=== PATIENT | male | born 1970 | race Caucasian/White ===

== ENCOUNTER 2017-06-07 17:04 | Emergency (ER) | payer OTHER ==
[2017-06-07] MEDS ORDERED: BUPIVACAINE 0.5% PF 30 ML VIAL ONE (17:36)
[2017-06-07] MEDS ORDERED: TETANUS/DIPHTHERIA/PERTUSSIS 0.5 ML SYRINGE IM ONE ×3 (17:36→18:17)
--- NOTE | 2017-06-07 17:39 | ED Physician Documentation ---
PD HPI UPPER EXT INJURY - Stated complaint Stated Complaint: RT FINGER INJ - Chief complaint Chief Complaint: Ext Problem - History obtained from History obtained from: Patient - History of Present Illness Location: Left, Finger (index) Where injury occurred: Home Timing - onset: How many minutes ago (20) Timing - duration: Minutes (20) Timing - details: Abrupt onset Pain level max: 4 Pain level now: 4 Improved by: Rest Worsened by: Moving, Palpating Associated symptoms: No: Weakness, Numbness, Tingling, Swelling Contributing factors: No: Anticoagulated Similar symptoms before: Has not had sx before - Additonal information Additional information: finger caught in milling machine Review of Systems Neurologic: denies: Focal weakness, Numbness PD PAST MEDICAL HISTORY - Past Medical History Past Medical History: No - Past Surgical History Past Surgical History: No - Present Medications Home Medications: Ambulatory Orders Medication Instructions Recorded Confirmed Cephalexin [Keflex] 500 mg PO Q6H #28 capsule 06/07/17 - Allergies Allergies/Adverse Reactions: Allergies Allergy/AdvReac Type Severity Reaction Status Date / Time No Known Drug Allergies Allergy Verified 02/25/15 19:33 - Social History Does the pt smoke?: No Smoking Status: Never smoker Does the pt drink ETOH?: Yes Does the pt have substance abuse?: No - Immunizations Immunizations are current?: No Immunizations: TDAP >10years/unknown PD ED PE NORMAL - Vitals Vital signs reviewed: Yes - General General: Alert and oriented X 3, No acute distress - Derm Derm: Warm and dry - Extremities Extremities: Other (L index finger - FROM without pain. Superficial avulsion to pad of finger. No exposed bone. NVI 0.5x1cm) - Neuro Neuro: Alert and oriented X 3 Results - Vitals Vitals: Vital Signs - 24 hr 06/07/17 06/07/17 17:13 18:23 Temperature 36.5 C 36.9 C Heart Rate 92 96 Respiratory 16 18 Rate Blood Pressure 131/90 H 122/85 H O2 Saturation 98 95 Oxygen O2 Source Room air PD MEDICAL DECISION MAKING - ED course Complexity details: considered differential, d/w patient ED course: Patient is a 47-year-old right-handed male who presents with a avulsion of the pad of the left index finger. Superficial, not deep. No bony injury. Neurovascularly intact. Tendon intact. Wounds were copiously irrigated. Will place on antibiotics as this is a dirty wound. Gelfoam was used to stop the bleeding and tube gauze was applied around Telfa. Tdap given. Warnings of infection and instructions on wound care given at bedside. Also counseled on how to minimize scarring. Patient counseled regarding signs and symptoms for which I believe and urgent re-evaluation would be necessary. Patient with good understanding of and agreement to plan and is comfortable going home at this time This document was made in part using voice recognition software. While efforts are made to proofread this document, sound alike and grammatical errors may occur. Departure - Departure Disposition: Home, Self Care Clinical Impression: Traumatic amputation of fingertip Qualifiers: Encounter type: initial encounter Qualified Code(s): S68.129A - Partial traumatic metacarpophalangeal amputation of unspecified finger, initial encounter Condition: Good Instructions: ED Laceration Amputation Finger Tip Open Tx Follow-Up: your,doctor in 1 week for wound check [Other] Prescriptions: Cephalexin [Keflex] 500 mg PO Q6H #28 capsule Comments: Take all antibiotics until gone. Return if you worsen, especially redness, swelling or drainage from the wound. Keep the gelfoam in place for the next several days. Discharge Date/Time: 06/07/17 18:31
[2017-06-07] MEDS ORDERED: CEPHALEXIN 250 MG CAPSULE PO STA (17:57)
[2017-06-07] MEDS ORDERED: CEPHALEXIN 250 MG CAPSULE PO ONE (18:19)
[2017-06-07 18:24] VITALS: BP 122/85
== END 2017-06-07 18:31 | disposition home or self-care (01) ==
LOC: ED 17:04
DX: S68.120A Partial traumatic metacarpophalangeal amputation of right index finger, initial encounter (principal); W31.1XXA Contact with metalworking machines, initial encounter; Y92.009 Unspecified place in unspecified non-institutional (private) residence as the place of occurrence of the external cause; Z23 Encounter for immunization
CPT/HCPCS: 90471; 90715; 99283; A9270

== ENCOUNTER 2019-09-28 04:59 | Emergency (ER) | payer OTHER ==
--- NOTE | 2019-09-28 05:05 | ED Physician Documentation ---
History of Present Illness - Stated complaint Stated Complaint: BLOOD IN STOOL - Chief complaint Chief Complaint: Abd Pain - History obtained from History obtained from: Patient (The patient is a very pleasant 49-year-old male who is otherwise healthy and up-to-date on all of his with no history of colon cancer presents with a 2-day history of intermittent epigastric discomfort and also when he has a bowel movement reporting that it hurts and is noticed some blood streaking the stools as well as on the toilet paper he denies any syncopal episodes he reports he has had a previous colonoscopy CT scan the abdomen and MRI of the abdomen all have which have been unremarkable he denies any personal family history of colon cancer or irritable or inflammatory bowel diseases such as Crohn's or ulcerative colitis.He denies chest pain or shortness of breath he denies being anticoagulated.) Review of Systems Constitutional: reports: Reviewed and negative Eyes: reports: Reviewed and negative Ears: reports: Reviewed and negative Nose: reports: Reviewed and negative Throat: reports: Reviewed and negative Cardiac: reports: Reviewed and negative Respiratory: reports: Reviewed and negative GI: reports: Abdominal Pain, Bloody / black stool, Reviewed and negative : reports: Reviewed and negative Skin: reports: Reviewed and negative Musculoskeletal: reports: Reviewed and negative Neurologic: reports: Reviewed and negative Psychiatric: reports: Reviewed and negative Endocrine: reports: Reviewed and negative Immunocompromised: reports: Reviewed and negative PD PAST MEDICAL HISTORY - Past Surgical History Past Surgical History: No - Present Medications Home Medications: Ambulatory Orders Medication Instructions Recorded Confirmed Cephalexin [Keflex] 500 mg PO Q6H #28 capsule 06/07/17 - Allergies Allergies/Adverse Reactions: Allergies Allergy/AdvReac Type Severity Reaction Status Date / Time No Known Drug Allergies Allergy Verified 02/25/15 19:33 - Social History Does the pt smoke?: No Smoking Status: Never smoker Does the pt drink ETOH?: Yes Does the pt have substance abuse?: No - Immunizations Immunizations are current?: No Immunizations: TDAP >10years/unknown PD ED PE NORMAL - Vitals Vital signs reviewed: Yes - General General: Alert and oriented X 3, No acute distress - HEENT HEENT: PERRL - Neck Neck: Supple, no meningeal sign - Cardiac Cardiac: RRR, No murmur - Respiratory Respiratory: Clear bilaterally - Abdomen Abdomen: Normal bowel sounds, Soft, Non tender, Non distended, No organomegaly, Other (The abdomen soft, nontender, nondistended with normal active bowel sounds no guarding no rebounding and no hepatosplenomegaly there is no CVA tenderness.) - Rectal Rectal: Other (Hemoccult is positive, there is no obvious fissures or fistulas there is good rectal tone there is no high riding prostate no nodules felt on the prostate on digital rectal exam there is no stool in the rectal vault.) - Derm Derm: Warm and dry - Extremities Extremities: No deformity - Neuro Neuro: Alert and oriented X 3 - Psych Psych: Normal mood, Normal affect Results - Vitals Vitals: Vital Signs - 24 hr 09/28/19 05:03 Temperature 36.7 C Heart Rate 90 Respiratory 18 Rate Blood Pressure 140/92 H O2 Saturation 98 Oxygen O2 Source Room air - Labs Labs: Microbiology 09/28/19 05:30 Occult Blood - Final Stool Laboratory Tests 09/28/19 09/28/19 05:38 05:38 WBC 7.0 RBC 5.46 Hgb 16.1 Hct 46.9 MCV 85.9 MCH 29.5 MCHC 34.3 RDW 13.3 Plt Count 299 MPV 9.0 Neut # (Auto) 4.0 Lymph # (Auto) 1.6 Green # (Auto) 0.7 Eos # (Auto) 0.5 Baso # (Auto) 0.1 Absolute Nucleated RBC 0.00 Nucleated RBC % 0.0 Sodium 135 Potassium 3.6 Chloride 100 L Carbon Dioxide 24 Anion Gap 11.0 BUN 23 H Creatinine 0.9 Estimated GFR (MDRD) 90 Glucose 127 H Calcium 9.1 Total Bilirubin 1.8 H AST 22 ALT 43 Alkaline Phosphatase 61 Total Protein 7.4 Albumin 4.7 Globulin 2.7 Albumin/Globulin Ratio 1.7 Lipase 33 Departure - Departure Disposition: 01 Home, Self Care Clinical Impression: Blood in stool Condition: Good Instructions: ED Hematochezia Stable Follow-Up: YOUR,DOCTOR [Other] - Tomorrow
[2019-09-28 05:10] VITALS: BP 140/92
[2019-09-28 05:43] LABS: BASOPHILS # (AUTO) 0.1 10^3/uL (0.0-0.1); BASOPHILS % (AUTO) 0.7 %; EOSINOPHILS # (AUTO) 0.5 10^3/uL (0.0-0.7); EOSINOPHILS % (AUTO) 7.7 %; HGB - HEMOGLOBIN 16.1 g/dL (14.0-18.0); LYMPHOCYTES # (AUTO) 1.6 10^3/uL (1.5-3.5); LYMPHOCYTES % (AUTO) 23.5 %; MEAN CORPUSCULAR HEMOGLOBIN 29.5 pg (27.0-31.0); MEAN CORPUSCULAR HGB CONC 34.3 g/dL (32.0-36.0); MEAN CORPUSCULAR VOLUME 85.9 fL (80.0-94.0); MONOCYTES # (AUTO) 0.7 10^3/uL (0.0-1.0); MONOCYTES % (AUTO) 9.9 %; NEUTROPHILS % (AUTO) 57.8 %; PLT - PLATELET COUNT 299 10^3/uL (130-450); RED BLOOD COUNT 5.46 10^6/uL (4.70-6.10); RED CELL DISTRIBUTION WIDTH 13.3 % (12.0-15.0)
[2019-09-28 05:54] LABS: ALBUMIN 4.7 g/dL (3.2-5.5); ALBUMIN/GLOBULIN RATIO 1.7 (1.0-2.2); BILIRUBIN,TOTAL 1.8 mg/dL (0.2-1.0); CALCIUM 9.1 mg/dL (8.5-10.3); CREATININE 0.9 mg/dL (0.6-1.2); TOTAL PROTEIN 7.4 g/dL (6.7-8.2)
== END 2019-09-28 06:15 | disposition home or self-care (01) ==
LOC: ED 04:59
DX: K92.1 Melena (principal)
CPT/HCPCS: 36415; 80053; 82272; 83690; 85025; 99283; 99284

== ENCOUNTER 2022-09-09 09:42 | Emergency (ER) | payer OTHER ==
[2022-09-09 10:12] LABS: BASOPHILS % (AUTO) 0.6 %; EOSINOPHILS # (AUTO) 0.1 10^3/uL (0.0-0.7); EOSINOPHILS % (AUTO) 1.2 %; HCT - HEMATOCRIT 48.5 % (42.0-52.0); HGB - HEMOGLOBIN 16.3 g/dL (14.0-18.0); LYMPHOCYTES # (AUTO) 1.7 10^3/uL (1.5-3.5); LYMPHOCYTES % (AUTO) 25.7 %; MEAN CORPUSCULAR HEMOGLOBIN 28.9 pg (27.0-31.0); MEAN CORPUSCULAR HGB CONC 33.6 g/dL (32.0-36.0); MEAN PLATELET VOLUME 8.8 fL (7.4-11.4); MONOCYTES # (AUTO) 0.7 10^3/uL (0.0-1.0); MONOCYTES % (AUTO) 10.4 %; NEUTROPHILS # (AUTO) 4.1 10^3/uL (1.5-6.6); NEUTROPHILS % (AUTO) 61.9 %; PLT - PLATELET COUNT 332 10^3/uL (130-450); RED BLOOD COUNT 5.64 10^6/uL (4.70-6.10); RED CELL DISTRIBUTION WIDTH 13.1 % (12.0-15.0); WHITE BLOOD COUNT 6.5 x10^3/uL (4.8-10.8)
--- NOTE | 2022-09-09 10:23 | ED Physician Documentation ---
PD HPI CHEST PAIN - Stated complaint Stated Complaint: CHEST PX - Chief complaint Chief Complaint: Cardiac - History obtained from History obtained from: Patient - History of Present Illness Timing - onset: Today Timing - onset during: Light activity Timing - duration: Minutes (it did improve enroute without particular intervention.) Timing - details: Abrupt onset (Onset at work doing just light activity walking and noted onset of some substernal chest pressure and pain. It was shortly after eating breakfast. He then had a banana and noticed to get a lot worse. Somewhat lightheaded with feeling of numbness on his lips. no dyspnea.) Quality: Pressure, Tightness. No: Sharp Location: Substernal, Epigastric Radiation: Jaw Improved by: No: Rest Worsened by: No: Inspiration, Movement, Palpation Associated symptoms: Feeling faint / dizzy. No: Shortness of air, Nausea, Cough Similar symptoms before: No diagnosis (some arm discomfort yesterday and "didn't feel right" but no pain at that time. Does have history of GERD and esophagitis. Has not been taking Pantoprazole for few months as was feeling well.) Recently seen: Not recently seen Review of Systems Constitutional: denies: Fever Nose: denies: Rhinorrhea / runny nose, Congestion Throat: denies: Sore throat Respiratory: denies: Cough GI: denies: Nausea, Vomiting, Diarrhea, Bloody / black stool Musculoskeletal: denies: Back pain Neurologic: denies: Generalized weakness, Near syncope PD PAST MEDICAL HISTORY - Past Medical History Cardiovascular: Hypertension Respiratory: None Neuro: None Endocrine/Autoimmune: None GI: GERD : None - Past Surgical History Past Surgical History: No - Present Medications Home Medications: Ambulatory Orders Medication Instructions Recorded Confirmed Aspirin EC [Ecotrin] 81 mg PO DAILY 09/09/22 09/09/22 Brimonidine 0.2% Ophth Drops 1 drops OP BID 09/09/22 09/09/22 [Alphagan P 0.2% Ophth Drops] Lisinopril [Zestril] 10 mg PO DAILY 09/09/22 09/09/22 Pantoprazole [Protonix] 40 mg PO DAILY 09/09/22 09/09/22 Pantoprazole [Protonix] 40 mg PO DAILY 30 Days #30 tablet 09/09/22 Sucralfate [Carafate] 1 gm PO ACHS #20 tablet 09/09/22 - Allergies Allergies/Adverse Reactions: Allergies Allergy/AdvReac Type Severity Reaction Status Date / Time No Known Drug Allergies Allergy Verified 09/09/22 09:54 - Social History Does the pt smoke?: No Smoking Status: Never smoker Does the pt drink ETOH?: Yes Does the pt have substance abuse?: No - Immunizations Immunizations are current?: No Immunizations: TDAP >10years/unknown PD ED PE NORMAL - Vitals Vital signs reviewed: Yes - General General: Alert and oriented X 3, No acute distress (denies chest pain now. ), Well developed/nourished - Neck Neck: Supple, no meningeal sign, No adenopathy - Cardiac Cardiac: RRR, No murmur - Respiratory Respiratory: No respiratory distress, Clear bilaterally - Abdomen Abdomen: Soft, Non tender - Derm Derm: Normal color, Warm and dry - Extremities Extremities: No edema, No calf tenderness / cord - Neuro Neuro: Alert and oriented X 3, No motor deficit, Normal speech Results - Vitals Vitals: Vital Signs - 24 hr 09/09/22 09/09/22 09/09/22 09:46 10:53 11:01 Temperature 36.5 C Heart Rate 111 H 98 94 Respiratory 16 20 24 Rate Blood Pressure 166/90 H 153/103 H O2 Saturation 97 95 95 Oxygen O2 Source Room air - EKG (time done) 09:52 Rate: Rate (enter#) (101) Rhythm: NSR [place]: Normal Intervals: Normal NM QRS: Normal Ischemia: Normal ST segments. No: ST elevation c/w ischemia, ST depression - Labs Labs: Laboratory Tests 09/09/22 09/09/22 09/09/22 10:07 10:07 10:07 WBC 6.5 RBC 5.64 Hgb 16.3 Hct 48.5 MCV 86.0 MCH 28.9 MCHC 33.6 RDW 13.1 Plt Count 332 MPV 8.8 Neut # (Auto) 4.1 Lymph # (Auto) 1.7 [place] # (Auto) 0.7 Eos # (Auto) 0.1 Baso # (Auto) 0.0 Absolute Nucleated RBC 0.00 Nucleated RBC % 0.0 Sodium 134 L Potassium 3.7 Chloride 99 L Carbon Dioxide 27 Anion Gap 8.0 BUN 22 H Creatinine 1.2 Estimated GFR (MDRD) 64 L Glucose 122 H Calcium 9.5 Total Bilirubin 1.6 H AST 24 ALT 45 Alkaline Phosphatase 74 Troponin I High Sens 3.8 Total Protein 7.7 Albumin 4.8 Globulin 2.9 Albumin/Globulin Ratio 1.7 Lipase 36 - Rads (name of study) chest xray Radiology: Prelim report reviewed, EMP read indepedently (no acute abnormality), See rad report PD Medical Decision Making - ED course Complexity details: reviewed results, re-evaluated patient, considered differential (symptoms onset related to after eating. Not exertional nor pleuritic. Likely GERD/esophagitis. However, it can be innacurate to go with just symptoms with chest pain, so certainly will get ECG/CXR/Troponin to ensure no signs of cardiorespiratory causes. ), d/w patient Reviewed Lab Results: ECG, CXR, Labs were ordered by me in consideration of evaluating for serious causes of chest pian.ECG did not show any ischemic changes. Chest xray was clear of acute pathology. Labs, especially troponin, were in normal range, exlcuding myocardial injury as a cause. ED course: he did not have any further chest pain symptoms while here. I did give initial meds for acid recudtion and coating of the stomach, as I feel this is the cause of his chest pain episode today. Departure - Departure Disposition: 01 Home, Self Care Clinical Impression: Esophagitis Chest pain Qualifiers: Chest pain type: precordial pain Qualified Code(s): R07.2 - Precordial pain Condition: Stable Record reviewed to determine appropriate education?: Yes Instructions: ED Chest Pain NonCardiac Follow-Up: [facility] [Provider Group] Prescriptions: Sucralfate [Carafate] 1 gm PO ACHS #20 tablet Pantoprazole [Protonix] 40 mg PO DAILY 30 Days #30 tablet Comments: Your EKG, chest x-ray, blood tests are normal excluding the more significant causes of the chest pain such as pneumonia, pneumothorax, congestive heart failure, heart attack, pancreatitis, liver inflammation. The description and provocation of the symptoms are suggestive of an irritation of the esophagus likely from reflux. I would have you restart your pantoprazole acid reducing medicine. In the short-term for the next 5 days I would also suggest coating the esophagus and stomach with sacral fate 3-4 times daily. I sent the prescriptions to the [facility] pharmacy. Tylenol every 4-6 hours if needed for pain. Avoid irritants of the stomach such as NSAIDs, lot of caffeine, alcohol, spicy foods. Follow-up with your primary care if not improving well over the next few days for consideration of other treatments. I sent your prescriptions to the [facility] pharmacy. Discharge Date/Time: 09/09/22 12:15
[2022-09-09 10:40] LABS: ALBUMIN 4.8 g/dL (3.2-5.5); ALBUMIN/GLOBULIN RATIO 1.7 (1.0-2.2); BILIRUBIN,TOTAL 1.6 mg/dL (0.2-1.0); CALCIUM 9.5 mg/dL (8.5-10.3); CREATININE 1.2 mg/dL (0.6-1.2); POTASSIUM 3.7 mmol/L (3.5-5.0); TOTAL PROTEIN 7.7 g/dL (6.7-8.2)
[2022-09-09] MEDS ORDERED: MAG HYDROX/AL HYDROX/SIMETH 30 ML UDC PO STA (10:40)
[2022-09-09] MEDS ORDERED: FAMOTIDINE 20 MG TABLET PO STA (10:40)
--- NOTE | 2022-09-09 10:48 | XRAY Report ---
PROCEDURE: Chest 1 View X-Ray INDICATIONS: Chest pain TECHNIQUE: One view of the chest was acquired. COMPARISON: None. FINDINGS: Surgical changes and devices: None. Lungs and pleura: No pleural effusions or pneumothorax. Lungs are clear. Mediastinum: Mediastinal contours appear normal. Heart size is normal. Bones and chest wall: No suspicious bony lesions. Overlying soft tissues appear unremarkable. IMPRESSION: No acute cardiopulmonary pathology. Reviewed by: Petros Aguillon MD on 09/09/2022 10:46 AM [facility] Approved by: Petros Aguillon MD on 09/09/2022 10:46 AM [facility] Station ID: [id number]
[2022-09-09 10:54] VITALS: BP 153/103
[2022-09-09] MEDS ORDERED: SUCRALFATE 1 GM/10 ML UDC PO STA (11:52)
== END 2022-09-09 12:15 | disposition home or self-care (01) ==
LOC: ED 09:42
DX: K20.90 Esophagitis, unspecified without bleeding (principal); R07.2 Precordial pain; I10 Essential (primary) hypertension
CPT/HCPCS: 36415; 71045; 80053; 83690; 84484; 85025; 93005; 99284; A9270

== ENCOUNTER 2023-03-30 18:10 | Emergency (ER) | payer OTHER ==
[2023-03-30 18:21] VITALS: BP 150/73
[2023-03-30] MEDS ORDERED: DEXAMETHASONE 10 MG/ML VIAL PO STA (18:44)
[2023-03-30] MEDS ORDERED: CHERRY SYRUP 10 ML UDC PO ONE (18:44)
--- NOTE | 2023-03-30 18:47 | ED Physician Documentation ---
History of Present Illness - Stated complaint Stated Complaint: THROAT SWELLING/BUG BITE - Chief complaint Chief Complaint: Wound - Additonal information Additional information: 53-year-old male presents emergency department for evaluation of a rash on his abdomen as well as mild cough congestion and a tickle in his throat for the last several days. He reports he was outside thinks he was bitten by "no see em" bugs. He found the area was intensely itchy and he has been scratching it. He took 2 doses of 25 mg Benadryl without relief of symptoms. His in the room reports that he has very sensitive skin and often ends up with skin manifestations for unclear etiology. Patient also states that for the last 2 days he has had a tickle in his throat and a dry cough. He is has some fullness in his ears. No fevers. No runny nose. Fully vaccinated and boosted for COVID. Review of Systems Constitutional: denies: Fever Nose: denies: Rhinorrhea / runny nose, Congestion Throat: reports: Sore throat Cardiac: reports: Reviewed and negative Respiratory: reports: Reviewed and negative GI: reports: Reviewed and negative : reports: Reviewed and negative Skin: reports: Rash Musculoskeletal: reports: Reviewed and negative PD PAST MEDICAL HISTORY - Past Medical History Cardiovascular: Hypertension Respiratory: None Neuro: None Endocrine/Autoimmune: None GI: GERD : None HEENT: Other Psych: None Musculoskeletal: None Derm: None - Past Surgical History Past Surgical History: No - Present Medications Home Medications: Ambulatory Orders Medication Instructions Recorded Confirmed Aspirin EC [Ecotrin] 81 mg PO DAILY 09/09/22 09/09/22 Brimonidine 0.2% Ophth Drops 1 drops OP BID 09/09/22 09/09/22 [Alphagan P 0.2% Ophth Drops] Lisinopril [Zestril] 10 mg PO DAILY 09/09/22 09/09/22 Pantoprazole [Protonix] 40 mg PO DAILY 09/09/22 09/09/22 Pantoprazole [Protonix] 40 mg PO DAILY 30 Days #30 tablet 09/09/22 Sucralfate [Carafate] 1 gm PO ACHS #20 tablet 09/09/22 - Allergies Allergies/Adverse Reactions: Allergies Allergy/AdvReac Type Severity Reaction Status Date / Time No Known Drug Allergies Allergy Verified 03/30/23 18:17 - Social History Does the pt smoke?: No Smoking Status: Never smoker Does the pt drink ETOH?: Yes Does the pt have substance abuse?: No - Immunizations Immunizations are current?: No Immunizations: TDAP >10years/unknown PD ED PE NORMAL - General General: Alert and oriented X 3, No acute distress - HEENT HEENT: Atraumatic, Ears normal, Moist mucous membranes, Pharynx benign - Neck Neck: Supple, no meningeal sign, No adenopathy - Cardiac Cardiac: RRR, No murmur - Back Back: No CVA TTP, No spinal TTP - Derm Derm: Normal color, Warm and dry. No: No rash (3 x 3 cm area of raised erythema, blanchable. Nonvesicular. Scaling in appearance and palpation) - Extremities Extremities: No deformity - Neuro Neuro: Alert and oriented X 3 Eye Opening: Spontaneous Motor: Obeys Commands Verbal: Oriented GCS Score: 15 Results - Vitals Vitals: Vital Signs - 24 hr 03/30/23 18:17 Temperature 36.5 C Heart Rate 88 Respiratory 16 Rate Blood Pressure 150/73 H O2 Saturation 97 Oxygen O2 Source Room air PD Medical Decision Making - ED course Complexity details: considered differential, d/w patient ED course: 53-year-old male presents emergency department for evaluation of a rash on his lower abdomen this been present for 3 days after he thinks he was bitten by bugs. The appearance of the rash is consistent with a dermatitis. I question whether this was a contact dermatitis due to the belt but patient states he has had the belt for ever. However as such at this time I gave the patient 10 mg of Decadron orally and will recommend hydrocortisone point ointment over the next week or so. A respiratory PCR is pending for what I suspect to be a mild viral URI. Patient will follow up the results through the [facility] portal. Clinically unremarkable cardiopulmonary auscultation. Room air saturations 100%. Usual emergent return precautions were discussed. Departure - Departure Disposition: 01 Home, Self Care Clinical Impression: Rash URI (upper respiratory infection) Qualifiers: URI type: unspecified viral URI Qualified Code(s): J06.9 - Acute upper respiratory infection, unspecified Condition: Stable Comments: As discussed at the bedside I suspect that the rash on your lower abdomen is a dermatitis which is a term for generalized skin inflammation. Initially I thought it could have been due to the belt that you wear though at this time it is unclear. I have given you a single dose of Decadron today in the emergency department I would like you to apply hydrocortisone ointment to this rash twice daily for the next week or so. I expect that the this treatment will make the rash dissipate. I recommend you follow with your PCP to obtain referral to a welding systems and equipment repairer for longer-term evaluation of your skin concerns. Your upper respiratory infections may simply be due to an early virus. We have sent a viral swab and the results should be available on the [facility] portal over the next several hours. If you are COVID-19 positive I recommend that you maintain quarantine for a week. Return to the ER if you find that you are having any worsening symptoms, chest pain, shortness of air, or you find that the rash fails to resolve with the treatment as discussed above.
[2023-03-30 19:41] LABS: CORONAVIRUS 229E-RESP PCR NOT DETECTED; CORONAVIRUS HKU1-RESP PCR NOT DETECTED; CORONAVIRUS NL63-RESP PCR NOT DETECTED; CORONAVIRUS OC43-RESP PCR NOT DETECTED; HUMAN METAPNEUMOVIRUS NOT DETECTED; INFLUENZA A- RESP PCR PANEL NOT DETECTED; RHINOVIRUS/ENTEROVIRUS NOT DETECTED; SARS-CoV-2 -RESP PCR PANEL NOT DETECTED
[2023-03-30 19:42] LABS: B. PARAPERTUSSIS- RESP PCR PAN NOT DETECTED; B. PERTUSSIS- RESP PCR PANEL NOT DETECTED; C. PNEUMONIAE- RESP PCR PANEL NOT DETECTED; INFLUENZA B - RESP PCR PANEL NOT DETECTED; M. PNEUMONIAE- RESP PCR PANEL NOT DETECTED; PARAINFLUENZA VIRUS 1 NOT DETECTED; PARAINFLUENZA VIRUS 2 NOT DETECTED; PARAINFLUENZA VIRUS 3 NOT DETECTED; PARAINFLUENZA VIRUS 4 NOT DETECTED; RSV- RESP PCR PANEL NOT DETECTED
== END 2023-03-30 19:13 | disposition home or self-care (01) ==
LOC: ED 18:10
DX: R21 Rash and other nonspecific skin eruption (principal); J06.9 Acute upper respiratory infection, unspecified; I10 Essential (primary) hypertension
CPT/HCPCS: 87633; 99283; A9270

== ENCOUNTER 2024-01-13 07:59 | Outpatient (CLI) | payer OTHER ==
[~2024-01-13 07:59] MED LIST: GADOTERATE MEGLUMINE 10 MMOL/20 ML VIAL ONE
--- NOTE | 2024-01-13 11:14 | MRI Report ---
PROCEDURE: Brain W/WO INDICATIONS: ISCHEMIC OPTIC NEUROPATHY CONTRAST: 18.6ml Clariscan TECHNIQUE: Noncontrast axial T1 spin echo, axial T2 fast spin echo, sagittal and axial FLAIR, coronal T2 fast sp in echo, axial gradient echo, axial diffusion and ADC through the brain. After the administration of contrast, axial and coronal T1 spin echo with fat saturation through the brain. COMPARISON: None. FINDINGS: Image quality: Excellent. CSF spaces: Basal cisterns are patent. No extra-axial fluid collections. Ventricles are normal in size and shape. Brain: No midline shift. No intracranial bleeds or masses. No abnormal intracranial enhancement. There is mild cerebral volume loss for age. There is mild periventricular white matter chronic small vessel ischemic change. The brainstem appears normal. Diffusion-weighted images demonstrate no acu te ischemic insults. No chronic ischemic insults. Normal intravascular flow voids are present. Skull and face: Calvarial marrow is normal in signal. Orbits appear normal. Sinuses: Sinuses and mastoids appear clear. IMPRESSION: 1.No acute intracranial abnormalities. 2.While this study is not dedicated for evaluation of the optic nerves, the optic nerves are grossly normal in appearance without evidence of enhancement or edema. 3.Mild age-appropriate global volume loss and chronic microvascular ischemic changes. Reviewed by: Justin Ozuna MD on 01/13/2024 11:13 AM PDT Approved by: Justin Ozuna MD on 01/13/2024 11:13 AM PDT Station ID: [id number]
[2024-01-13] MEDS: GADOTERATE MEGLUMINE 10 MMOL/20 ML VIAL IVP ONE (18:17)
== END 2024-01-13 08:00 | disposition home or self-care (01) ==
LOC: DI 07:59
PROVIDERS: ATTEND Family Medicine
DX: H47.019 Ischemic optic neuropathy, unspecified eye (principal)
CPT/HCPCS: 70553; A9575